=== PATIENT | female | born 1970 | race African-American/Black ===

== ENCOUNTER 2022-03-08 13:04 | Emergency (ER) | payer OTHER ==
[~2022-03-08] VITALS: Ht 165.1 cm; Wt 114.8 kg
[2022-03-08 13:49] LABS: Hematocrit 41.4 % (36.0-46.0); Mean Corpuscular Hemoglobin 31.2 pg (28.0-32.0); Mean Corpuscular Hgb Conc. 33.7 g/dL (32.0-36.0); Mean Corpuscular Volume 92.4 fL (80.0-100.0); Red Blood Cells 4.48 10^6/uL (4.0-5.20); Red Cell Distribution Width 13.6 % (11.8-14.3); White Blood Cell 3.8 10^3/uL (4.4-10.8)
[2022-03-08 13:57] LABS: Band Neutrophils % (manual) 0; Basophils % (manual) 0 (0.0-2.0); Blast Cells 0; Metamyelocytes % 0; Myelocytes % 0; Promyelocytes % 0; Reactive Lymphocytes 0
[2022-03-08 14:05] LABS: INR 1.02 (0.9-1.15); Partial Thromboplastin Time 27.7 sec (23.6-33.0)
[2022-03-08 14:23] LABS: Albumin 3.3 g/dL (3.4-5.0); BUN/Creatinine Ratio 9.7; Calcium 8.9 mg/dL (8.5-10.1); Potassium 3.4 mmol/L (3.5-5.1)
[2022-03-08 14:25] LABS: Bilirubin, Total 0.4 mg/dL (0.2-1.0); Total Protein 7.2 g/dL (6.4-8.2)
[2022-03-08 14:54] LABS: Lymphocytes % (manual) 43 (10.0-50.0)
[2022-03-08 14:55] LABS: Eosinophils % (manual) 1 (0-7); Monocytes % (manual) 17 (0-12)
[2022-03-08] MEDS ORDERED: AZIT250T8 PO (14:58)
[2022-03-08] MEDS ORDERED: cefTRIAXone W LIDOCAINE 1 GM IM IM ONE (15:00)
[2022-03-08] MEDS ORDERED: AZITHROMYCIN 250 MG TAB PO ONE (15:00)
[2022-03-08 15:13] LABS: Urine Bacteria NONE SEEN /hpf (None Seen); Urine Blood Negative /uL (Negative); Urine Mucus FEW (None Seen); Urine Specific Gravity 1.036 (1.001-1.035); Urine WBC 1 /hpf (0 - 5)
[2022-03-08 15:41] VITALS: BP 135/76
[2022-03-08] MEDS ORDERED: cefTRIAXone SOD 1,000 MG VL ONE (15:41)
[2022-03-08] MEDS ORDERED: ACETAMINOPHEN 325 MG TAB PO ONE ×2 (16:41→17:00)
== END 2022-03-08 16:48 | disposition home or self-care (01) ==
LOC: ER 13:04
DX: J18.9 Pneumonia, unspecified organism (principal); Z88.6 Allergy status to analgesic agent
CPT/HCPCS: 36415; 71045; 80053; 81001; 83880; 84484; 85007; 85027; 85379; 85610; 85730; 93005; 99285; J0696